=== PATIENT | male | born 1960 | race American Indian/Alaskan Native ===

== ENCOUNTER 2019-03-01 04:06 | Emergency (ER) | payer BC ==
--- NOTE | 2019-03-01 07:48 | Emergency Department Report ---
- General Chief Complaint: Upper Respiratory Infection Stated Complaint: COUGH CONGESTION Source: patient Mode of arrival: Ambulatory Limitations: No Limitations - History of Present Illness Initial Comments: 58 yo male c/o of productive cough and nasal congestion x 6 days. 2 days with sweating,nausea,headache and bodyaches. PMH of sleep apnea uses CPAP at home. Denies CP, SOB, vomiting and diarrhea MD Complaint: cough, rhinorrhea, nasal congestion -: Gradual Severity scale (0 -10): 3 Consistency: constant Improves With: nothing Worsens With: other (cough worsens at night) Associated Symptoms: chills, myalgias, diaphoresis, headache, rhinorrhea, nasal congestion, cough, nausea. denies: vomiting, diarrhea, dysuria, ear pain Treatments Prior to Arrival: none - Related Data Allergies Allergy/AdvReac Type Severity Reaction Status Date / Time No Known Allergies Allergy Unverified 03/01/19 04:19 ED Review of Systems ROS: Stated complaint: COUGH CONGESTION Other details as noted in HPI Comment: All other systems reviewed and negative ENT: congestion Respiratory: cough Gastrointestinal: nausea Musculoskeletal: myalgia Neurological: headache ED Past Medical Hx - Past Medical History Previous Medical History?: No - Surgical History Past Surgical History?: No - Social History Smoking Status: Former Smoker Substance Use Type: None ED Physical Exam - General Limitations: No Limitations General appearance: alert, in no apparent distress - Head Head exam: Present: normal inspection - Eye Eye exam: Present: normal appearance. Absent: conjunctival injection - ENT ENT exam: Present: normal orophraynx, mucous membranes moist, TM's normal bilaterally, other (enlarged nasal turbinates,with rhinorrhea) - Neck Neck exam: Present: normal inspection. Absent: lymphadenopathy - Respiratory Respiratory exam: Present: rhonchi, decreased breath sounds (at the bases). Absent: respiratory distress, wheezes - Cardiovascular Cardiovascular Exam: Present: regular rate, normal heart sounds - GI/Abdominal GI/Abdominal exam: Present: soft. Absent: distended, tenderness - Back Exam Back exam: Present: normal inspection - Neurological Exam Neurological exam: Present: alert, oriented X3 - Psychiatric Psychiatric exam: Present: normal affect - Skin Skin exam: Present: warm, dry, intact, normal color ED Course Vital Signs 03/01/19 03/01/19 04:11 09:45 Temperature 97.9 F 97.9 F Pulse Rate 89 82 Respiratory 18 18 Rate Blood Pressure 153/73 Blood Pressure 147/78 [Right] O2 Sat by Pulse 95 97 Oximetry ED Medical Decision Making - Radiology Data Radiology results: report reviewed Chest Xray IMPRESSION: 1. No acute findings. - Medical Decision Making 58 yo male with URI symptoms. CXR no acute findings Discussed with patient treatment and management of URI symptoms. Critical care attestation.: If time is entered above; I have spent that time in minutes in the direct care of this critically ill patient, excluding procedure time. ED Disposition Clinical Impression: Upper respiratory infection Qualifiers: URI type: acute nasopharyngitis (common cold) Qualified Code(s): J00 - Acute nasopharyngitis [common cold] Disposition: TO HOME OR SELFCARE Is pt being admited?: No Does the pt Need Aspirin: No Condition: Stable Instructions: Upper Respiratory Infection (ED) Additional Instructions: Increase oral hydration. Drink plenty fluids rest. Take Robitussin(per package instructions) for cough, tylenol 650mg by mouth every 4 hours as needed for fever and or bodyaches. Follow up with your doctor in 2-3 days. Return to ER for fever, chest pain and SOB. Ok to also take over the counter cold medication as directed by package insert. Your chest xray had no acute findings Your flu swab was negative Referrals: PRIMARY CARE, [Primary Care Provider] - 3-5 Days Forms: Work/School Release Form(ED) Time of Disposition: 10:00
--- NOTE | 2019-03-01 08:23 | XRay Report ---
CHEST 2 VIEWS INDICATION / CLINICAL INFORMATION: Productive cough x 6 days. COMPARISON: None available. FINDINGS: SUPPORT DEVICES: None. HEART / MEDIASTINUM: No significant abnormality. LUNGS / PLEURA: No significant pulmonary or pleural abnormality. .No pneumothorax. ADDITIONAL FINDINGS: No significant additional findings. IMPRESSION: 1. No acute findings. Signer Name: Chin Narvaez MD Signed: 03/01/2019 8:19 AM Workstation Name: [id number]
[2019-03-01 10:31] VITALS: BP 147/78
== END 2019-03-01 09:45 | disposition home or self-care (01) ==
LOC: ED 04:06
DX: J00 Acute nasopharyngitis [common cold] (principal); Z87.891 Personal history of nicotine dependence
CPT/HCPCS: 71046; 87400